=== PATIENT | male | born 1965 ===

== ENCOUNTER 2024-11-26 17:19 | Inpatient (IN) | payer OTHER ==
[~2024-11-26] VITALS: Ht 170.2 cm; Wt 83.8 kg
--- NOTE | 2024-11-26 18:41 | NUR ---
NOTIFIED HOSPITALIST THAT PT JUST ARRIVED TO UNIT AND NEEDS ORDERS.
[2024-11-26 19:46] VITALS: BP 120/78
[2024-11-26 19:59] LABS: BASOPHILS ABSOLUTE AUTO 0.07 K/mm3 (0.00-0.23); BASOPHILS PERCENT AUTO 1 % (0-2); EOSINOPHILS ABSOLUTE AUTO 0.22 K/mm3 (0.00-0.68); EOSINOPHILS PERCENT AUTO 2 % (0-6); Hematocrit 37.6 % (37.0-53.0); Hemoglobin 12.7 g/dL (13.5-17.5); IMMATURE GRAN ABSOLUTE AUTO 0.04 K/mm3 (0.00-0.10); IMMATURE GRAN PERCENT AUTO 0 % (0-1); LYMPHOCYTES ABSOLUTE AUTO 2.94 K/mm3 (0.84-5.20); LYMPHOCYTES PERCENT AUTO 31 % (21-46); MONOCYTES ABSOLUTE AUTO 1.01 K/mm3 (0.16-1.47); MONOCYTES PERCENT AUTO 11 % (4-13); Mean Corpuscular HGB 31.6 pg (26.0-34.0); Mean Corpuscular HGB Conc 33.8 g/dL (31.5-36.5); Mean Corpuscular Volume 94 fL (80-100); Mean Platelet Volume 9.4 fL (9.1-12.4); NEUTROPHILS ABSOLUTE AUTO 5.17 K/mm3 (1.96-9.15); NEUTROPHILS PERCENT AUTO 55 % (41-73); Platelet Count 355 K/mm3 (150-400); RDW Coefficient Variation 13.3 % (11.7-14.2); RDW Standard Deviation 45.5 fL (35.1-46.3); Red Blood Cell Count 4.02 M/mm3 (4.30-5.90); White Blood Cell Count 9.45 K/mm3 (4.00-11.30)
[2024-11-26 20:17] LABS: Prothrombin Time Results 10.7 Sec (9.7-11.5)
[2024-11-26 20:20] LABS: Albumin, Blood 3.1 g/dL (3.4-5.0); Albumin/Globulin Ratio 0.8 (0.8-1.8); Bilirubin, Total 0.4 mg/dL (0.1-1.0); Calcium, Blood 8.7 mg/dL (8.5-10.1); Creatinine, Blood 0.87 mg/dL (0.60-1.20); Globulin, Blood 4.1 g/dL (2.2-4.0); Potassium, Blood 4.1 mmol/L (3.5-5.5); Total Protein, Blood 7.2 g/dL (6.4-8.2)
[2024-11-26] MEDS ORDERED: NS 1,000 ML IV SCH (20:20)
[2024-11-26] MEDS ORDERED: FLU VACC TS2024-25(6MOS UP)/PF 45 MCG/0.5 ML SYRINGE IM ONE (20:25)
[2024-11-26] MEDS ORDERED: OxyCODONE 5 mg/Acetamin 325 mg TABLET PO PRN (20:25)
[2024-11-26] MEDS ORDERED: Ondansetron HCl 2 MG / ML 2ML Vial IV PRN (20:25)
[2024-11-26] MEDS ORDERED: Lactobacil 2-S.Thermo-Bifido 1 1 Cap PO SCH (21:00)
[2024-11-26] MEDS ORDERED: Piperacillin/Tazobactam Sod 3.375 GM in NS 100 ML IV SCH (21:00)
[2024-11-26] MEDS ORDERED: ONE-A-DAY MEN200 MCG (21:06)
[2024-11-27 05:22] VITALS: BP 119/84
[2024-11-27 05:23] LABS: Hematocrit 36.7 % (37.0-53.0); Hemoglobin 12.2 g/dL (13.5-17.5); Mean Corpuscular HGB Conc 33.2 g/dL (31.5-36.5); Mean Corpuscular Volume 93 fL (80-100); Mean Platelet Volume 9.5 fL (9.1-12.4); Platelet Count 365 K/mm3 (150-400); RDW Coefficient Variation 13.3 % (11.7-14.2); RDW Standard Deviation 45.6 fL (35.1-46.3); Red Blood Cell Count 3.94 M/mm3 (4.30-5.90); White Blood Cell Count 7.97 K/mm3 (4.00-11.30)
[2024-11-27 06:08] LABS: Bun/Creatinine Ratio 12.3 (12.0-20.0); Calcium, Blood 8.7 mg/dL (8.5-10.1); Creatinine, Blood 0.98 mg/dL (0.60-1.20); Magnesium, Blood 2.5 mg/dL (1.6-2.4); Potassium, Blood 4.3 mmol/L (3.5-5.5)
--- NOTE | 2024-11-27 07:15 | NUR ---
SHIFT SUMMARY; PATIENT ABLE TO SLEEP IN LONG INTERVALS. WATER ONLY UNTIL MIDNIGHT, THEN NPO. NS/100ML/HR. DECLINED PRN PAIN MEDS. PLEASANT AND GRATEFUL FOR OUR CARE.
[2024-11-27 07:33] VITALS: BP 124/82
[2024-11-27] MEDS ORDERED: CIPR500 PO (13:29)
[2024-11-27] MEDS ORDERED: VISBIOME 112.51 EACH PO (13:29)
[2024-11-27] MEDS ORDERED: METR500 PO (13:30)
[2024-11-27 14:25] VITALS: BP 129/77
--- NOTE | 2024-11-27 15:01 | NUR ---
DISCHARGE: PACKET PRINTED AND PT EDUCATED. IV DC'D WNL BY MANAGER COUNCIL STUDENT. MEDS FAXED TO [facility]. PT VERBALIZED UNDERSTANDING OF DC INSTRUCTIONS. LEFT UNIT ON FOOT AT ABOUT 1445 WITH . DENIED NEED OF WHEELCHAIR
== END 2024-11-27 14:56 | disposition home or self-care (01) | DRG 392 ==
LOC: MEDS 17:19 → EDBD 17:56 → SURS 17:56
PROVIDERS: Nurse Practitioner Acute Care; ADMIT Family Medicine
DX: K57.20 Diverticulitis of large intestine with perforation and abscess without bleeding (principal); Z87.891 Personal history of nicotine dependence
CPT/HCPCS: 36415; 80048; 80053; 83735; 85025; 85027; 85610; A9270; J2543; J7030